=== PATIENT | male | born 1950 | race Caucasian/White ===

== ENCOUNTER 2020-09-23 17:41 | Emergency (ER) | payer MEDICARE, BC ==
[~2020-09-23 17:41] MED LIST: ASPIR-LOX325 MG PO; LISINOPRIL20 MG PO; NASACORT55 MCG/ACT NAS
[2020-09-23] MEDS ORDERED: TIMOLOL 0.5% OP10 ML OS (17:48)
[2020-09-23] MEDS ORDERED: BRIMONIDINE TAR10 ML OP (17:48)
[2020-09-23 18:04] LABS: HEMATOCRIT 46.8 % (42.0-52.0); HEMOGLOBIN 15.9 g/dL (13.5-18.0); MEAN CELL VOLUME 87 fl (78-100); MEAN CORPUSCULAR HEMOGLOBIN 30 pg (27-31); MEAN CORPUSCULAR HGB CONC 34 g/dL (33-37); MEAN PLATELET VOLUME 9.1 fl (7.4-10.4); PLATELET COUNT 236 K/mm3 (130-400); RED BLOOD COUNT 5.37 M/mm3 (4.20-5.60); RED CELL DISTRIBUTION WIDTH 12.5 % (11.5-14.5); WHITE BLOOD COUNT 15.5 K/mm3 (4.8-10.8)
[2020-09-23 18:17] LABS: BASO # 0.02 (0.02-0.10); EOS # 0.05 (0.04-0.40); EOS % 0.3 % (0.0-4.0); LYMPH# 1.37 (1.50-4.00); MONO # 1.48 (0.20-0.80); NEU # 12.62 (1.40-6.50)
[2020-09-23 18:19] LABS: ALBUMIN 4.2 g/dL (3.4-4.8); POTASSIUM 3.8 mmol/L (3.5-5.1)
[2020-09-23 18:21] LABS: TOTAL PROTEIN 7.6 g/dL (6.2-8.1)
[2020-09-23 18:23] LABS: TOTAL BILIRUBIN 0.9 mg/dL (0.2-1.2)
[2020-09-23 18:58] LABS: URINE APPEARANCE CLEAR; URINE BILIRUBIN NEGATIVE (NEGATIVE); URINE BLOOD 50 ery/uL (NEGATIVE); URINE COLOR YELLOW; URINE GLUCOSE NEGATIVE (NEGATIVE); URINE KETONE NEGATIVE (NEGATIVE); URINE LEUKOCYTE ESTERASE TRACE (NEGATIVE); URINE NITRATE NEGATIVE (NEGATIVE); URINE PROTEIN(semi-quant) TRACE mg/dL (NEGATIVE); URINE UROBILINOGEN NORMAL (NORMAL)
[2020-09-23] MEDS ORDERED: CIPRO 500MG TA500 MG PO (19:24)
[2020-09-23] MEDS ORDERED: FLAGYL500 M1 PO (19:24)
[2020-09-23] MEDS ORDERED: ZOFRAN ODT4 MG PO (19:28)
[2020-09-23] MEDS ORDERED: NORCO 325 MG-51 TA1 PO (19:29)
[2020-09-23 19:41] VITALS: BP 151/87
== END 2020-09-23 19:41 | disposition home or self-care (01) ==
LOC: ED 17:41
PROVIDERS: Nurse Practitioner Primary Care
DX: K57.92 Diverticulitis of intestine, part unspecified, without perforation or abscess without bleeding (principal); I10 Essential (primary) hypertension; Z88.0 Allergy status to penicillin
CPT/HCPCS: J2405; J7030; Q9967